=== PATIENT | female | born 1960 | race Caucasian/White ===

== ENCOUNTER → 2021-03-02 10:06 | Outpatient (CLI) | payer OTHER, SELFPAY ==
--- NOTE | 2021-03-02 10:09 | DI.US.S_ITS ---
PROCEDURE: US PELVIC COMPLETE INDICATIONS: PMB TECHNIQUE: Real-time scanning was performed of the pelvic organs, with image documentation. Additional endovaginal scanning was necessary due to incomplete visualization of the adnexal and endometrial structures by transabdominal scanning. COMPARISON: [facility], [place], PELVIS SONO TRANSVAGINAL (PNL), 10/15/2013, 12:57. [facility], US, PELVIS SONO TRANSVAGINAL (PNL), 09/21/2014, 7:46. [facility], [place], PELVIC COMPLETE, 05/06/2016, 11:00. FINDINGS: Uterus: Uterus is anteverted and increased in size at 11.3 x 6.2 x 9.2 cm. The myometrium is heterogeneous. The endometrium measures 24.5 mm combined thickness. Multiple fibroids are present, the large 1.1 x 1.7 cm and 2.1 x 1.0 by Ovaries: Ovaries not identified. No adnexal masses. Other: No pathologic free abdominal or pelvic fluid. IMPRESSION: 1. Myomatous uterus redemonstrated with largest fibroid measuring up to 2.7 cm. 2. Abnormal thickening of the endometrial complex in this postmenopausal female with history of bleeding. Endometrial biopsy is recommended to exclude endometrial neoplasm such as endometrial carcinoma. 3. Ovaries not identified. We strive to produce accurate, complete, and clear reports of imaging services. To assist us in improving patient care, this report was composed using standard report templates and voice recognition software. Therefore, it may contain abnormal punctuation, insertions and/or omissions. Occasional wrong-word or sound-alike substitutions may occur. Though we review the report and make efforts to correct it, we do recommend that the report be read carefully in proper context to recognize any text inaccuracies. Dictated by: Eric Jaimes RRHarpal Interpreted: Tamir Fontenot MD on 03/02/2021 at 10:46 Transcribed by: JARRED on 03/02/2021 at 10:49 Approved by: Tamir Fontenot M.D. on 03/02/2021 at 11:37
== END ==
PROVIDERS: PCP Physician Assistant; Referring Provider Obstetrics & Gynecology; Visit Provider Obstetrics & Gynecology
DX: N95.0 Postmenopausal bleeding (principal); D25.9 Leiomyoma of uterus, unspecified; R93.89 Abnormal findings on diagnostic imaging of other specified body structures
CPT/HCPCS: 76830; 76856